=== PATIENT | female | born 1945 | race African-American/Black ===

== ENCOUNTER 2017-08-15 13:45 | Outpatient (RCR) | payer OTHER ==
[~2017-08-15 13:45] MED LIST: ASTELIN137 MCG/0. NASAL; DOCUSATE SODIU250 MG ORAL; FLONASE1 SPRAYS NASAL; FOLIC ACID0.4 MG ORAL; LEVAQUIN500 MG ORAL; LOPRESSOR25 M1 ORAL; LOPRESSOR25 MG ORAL; METHOTREXATE2.5 MG ORAL; METRONIDAZOLE500 MG ORAL; NEURONTIN600 MG ORAL; NORVASC10 MG ORAL; PLAQUENIL200 MG ORAL; PREDNISONE20 MG ORAL; PREDNISONE50 MG PO; PROAIR HFA8.5 GM INH; PULMICORT FLE180 MCG IH; QVAR INH1 PUFF INH; ROXICODONE5 MG ORAL; SULFAZINE500 MG ORAL; VICODIN 5-5001 EACH ORAL; ZYRTEC10 M3 ORAL; [UNRECOGNIZED DRUG - OTHER]; fentanyl
== END 2017-08-28 | disposition home or self-care (01) ==
LOC: PTY 13:45
DX: M54.40 Lumbago with sciatica, unspecified side (principal)

== ENCOUNTER 2017-08-30 11:11 | Outpatient (RCR) | payer OTHER | END 2017-09-25 | disposition home or self-care (01) | LOC: PTY 11:11 | DX: M54.40 Lumbago with sciatica, unspecified side (principal) ==

== ENCOUNTER 2017-09-27 10:32 | Outpatient (RCR) | payer OTHER | END 2017-10-26 | disposition home or self-care (01) | LOC: PTY 10:32 | DX: M54.40 Lumbago with sciatica, unspecified side (principal) ==

== ENCOUNTER 2017-11-27 12:30 | Outpatient (RCR) | payer OTHER | END 2017-12-26 | disposition home or self-care (01) | LOC: PTY 12:30 | DX: M15.0 Primary generalized (osteo)arthritis (principal); M54.40 Lumbago with sciatica, unspecified side ==

== ENCOUNTER 2017-12-27 10:55 | Outpatient (RCR) | payer OTHER | END 2018-01-25 | disposition home or self-care (01) | LOC: PTY 10:55 | DX: M15.0 Primary generalized (osteo)arthritis (principal) ==

== ENCOUNTER 2018-01-30 13:45 | Outpatient (RCR) | payer OTHER | END 2018-02-25 | disposition home or self-care (01) | LOC: PTY 13:45 | DX: M15.0 Primary generalized (osteo)arthritis (principal) ==

== ENCOUNTER 2018-04-07 10:55 | Outpatient (RCR) | payer OTHER | END 2018-04-27 | disposition home or self-care (01) | LOC: PTY 10:55 | DX: M15.0 Primary generalized (osteo)arthritis (principal) ==